=== PATIENT | male | born 2005 | race Caucasian/White ===

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

== ENCOUNTER 2024-06-27 14:49 | Emergency (ER) | payer OTHER, SELFPAY ==
[2024-06-27 15:11] VITALS: BP 131/80; PULSE 80; RESP 20; TEMP 36.6; O2SAT 100
--- NOTE | 2024-06-27 16:11 | ED.URI ---
HPI - URI/Sore Throat General Chief Complaint: Upper Respiratory Infection Stated Complaint: Throat Problems Time Seen by Provider: 06/27/24 16:11 Source: patient, RN notes reviewed and old records reviewed Mode of arrival: ambulatory Limitations: no limitations History of Present Illness HPI Narrative: 19-year-old to the [facility] that his tonsils are swollen since Thursday or . Has taken Mucinex and allergy medication with no relief. Onset (ago): day(s) Related Data Home Medications ?Medication ?Instructions ?Recorded ?Confirmed ?Last Taken ?Type cetirizine .ROUTE 06/27/24 Unknown History Allergies Allergy/AdvReac Type Severity Reaction Status Date / Time Penicillins Allergy Mild Other Verified 06/27/24 15:45 Review of Systems Review of Systems: All systems reviewed & are unremarkable except as noted in HPI and below Constitutional: Constitutional: Reports no additional constitutional complaints ENT: Reports as per HPI Cardiovascular: Cardiovascular: Reports no additional cardiovascular complaints, Denies chest pain and Denies dyspnea Respiratory: Respiratory: Reports no additional respiratory complaints, Denies chest congestion, Denies cough and Denies dyspnea Musculoskeletal: Musculoskeletal: Reports no additional musculoskeletal complaints Integumentary/Breasts: Skin/Breast: Reports system reviewed and no additional complaints, except as docu PMFSH Past Medical History Medical History Patient denies medical problems Surgical History Surgical History No pertinent past surgical history Social History Social History Smoking status: Never smoker Comments At the time of my signature, I reviewed and agree with the nursing past medical, surgical, social, and family history. There is no relevant family history pertinent to the patient complaint. Exam Const: General: cooperative, healthy appearing, comfortable, no acute distress, well developed, alert and well nourished Nutritional Appearance: well nourished Orientation/consciousness: patient oriented x3 Limitations: no limitations HENMT: Head: normal to inspection Ears: hearing grossly normal bilaterally, external ears normal, TM's normal bilaterally, EAC's normal, mastoids normal and no periauricular adenopathy Throat: posterior oropharynx normal, tonsils normal, uvula midline, no peritonsillar masses and no uvular edema Eyes: General: appearance normal, both eyes and all related structures Alignment and Position: alignment normal Neck: Neck: normal visual inspection, full ROM, no lymphadenopathy and no meningeal signs Chest: Chest palpation & inspection: normal inspection of the chest Resp: Effort & Inspection: normal respiratory effort and able to speak in complete sentences Auscultation: clear to auscultation bilaterally, no crackles, no rales, no rhonchi and no wheezes Cardio: Rate: regular rate Skin: General skin exam: normal color and no rashes or lesions noted Neuro: General: patient oriented x3, gait normal, moves all extremities and no meningeal signs Cognition (Neuro): normal cognition Speech: normal speech Gait exam (Neuro): Normal gait present Extrem: General: normal to inspection, full ROM, capillary refill normal and normal gait Psych: Appearance: grossly normal and well kempt Mental Status: mental status grossly normal Speech and movement: Normal speech and movement present and Clear speech present Affect: normal affect Attitude: cooperative Course Course Level of Care: Express Care Visit Vital Signs Vital signs: Vital Signs Temperature 97.9 F 06/27/24 15:11 Pulse Rate 80 06/27/24 15:11 Respiratory Rate 20 06/27/24 15:11 Blood Pressure 131/80 06/27/24 15:11 Pulse Oximetry 100 06/27/24 15:11 Oxygen Delivery Room Air 06/27/24 15:11 Temperature 97.9 F 06/27/24 15:11 Pulse Rate 80 06/27/24 15:11 Respiratory Rate 20 06/27/24 15:11 Blood Pressure 131/80 06/27/24 15:11 Pulse Oximetry 100 06/27/24 15:11 Oxygen Delivery Room Air 06/27/24 15:11 Reviewed MDM - URI/Sore Throat MDM Narrative Medical decision making narrative: Patient sitting in exam room. Nontoxic, vitals stable. Patient reports that it feels like something is stuck in his throat, is able to eat, drink. Symptoms for several days. No acute findings noted on exam. Patient offered strep, states that he does not think he has strep as had the past and does not feel painful. Is declining strep test at this time. Patient was concerned that he has something stuck in his throat but he is maintaining own secretions. Able to eat and drink without issue Patient appropriate for outpatient treatment and follow-up Discharge instructions reviewed with patient, as well as provided in writing per nursing staff. The instructions also include specific and strict return/GO TO THE ER as well as f/u information. All questions have been answered, and the patient deny any further questions with discharge and discharge plan. Some parts of this dictation were generated by voice recognition software and may contain typographical and/or grammatical inaccuracies. Differential Diagnosis Differential diagnosis: Likely upper respiratory infection, viral infection and pharyngitis Critical Care Time Critical Care Time Critical Care Time: No Discharge Plan Discharge Clinical Impression: Throat discomfort Patient Disposition: Home, Self-Care Condition: Stable Instructions: Antibiotic Form, Pharyngitis (ED) Additional Instructions: Continue using Mucinex Continue taking allergy medication Stay hydrated with plenty of water, Gatorade, Pedialyte, ice pops in Jell-O. Avoid caffeinated carbonated beverages. Do not smoke. Follow-up with primary care provider if symptoms persist For new or worsening symptoms go directly to the emergency room Patient Language: Khmer Prescriptions: No Action cetirizine [Zyrtec] .ROUTE Follow-up/Referrals: Harms,Ham Powers M.D. [Primary Care Provider] - 1 Week ([facility] follow-up) Stand Alone Forms: Work/School Release IP Time of Disposition: 16:17
== END 2024-06-27 16:20 | disposition home or self-care (01) ==
PROVIDERS: Emergency Provider Nurse Practitioner; PCP Family Medicine
DX: J02.9 Acute pharyngitis, unspecified (principal)
CPT/HCPCS: 99211; 99212; G0463